=== PATIENT | female | born 1975 | race Two or more races ===

== ENCOUNTER 2016-10-06 08:17 | Emergency (ER) | payer MEDICAID ==
[2016-10-06 08:24] VITALS: BP 133/95
--- NOTE | 2016-10-06 08:45 | ER Document Report ---
HPI - HPI Patient complains to provider of: cockroach in left ear canal Onset: This morning Onset/Duration: Sudden Pain Level: 5 Context: 40 yo female with cockroach in left ear canal this am, put alcohol in it and doesn't feel it move anymore. Associated Symptoms: None Exacerbated by: Denies Relieved by: Denies Similar symptoms previously: Yes Recently seen / treated by doctor: No - ROS ROS below otherwise negative: Yes Systems Reviewed and Negative: Yes All other systems reviewed and negative - DERM Skin Color: Normal Past Medical History - General Information source: Patient - Social History Smoking Status: Unknown if Ever Smoked Frequency of alcohol use: None Drug Abuse: None Lives with: Family - in [facility], visiting mom in [place] Family History: Reviewed & Not Pertinent - Medical History Medical History: Negative Renal/ Medical History: Denies: Hx Peritoneal Dialysis Surgical Hx: Negative Vertical Provider Document - CONSTITUTIONAL Agree With Documented VS: Yes Exam Limitations: No Limitations - INFECTION CONTROL TRAVEL OUTSIDE OF THE [place] IN LAST 30 DAYS: No - HEENT HEENT: Normocephalic Notes: bug in left ear canal - NECK Neck: Supple - RESPIRATORY Respiratory: Breath Sounds Normal, No Respiratory Distress O2 Sat by Pulse Oximetry: 99 - CARDIOVASCULAR Cardiovascular: Regular Rate, Regular Rhythm - MUSCULOSKELETAL/EXTREMETIES Musculoskeletal/Extremeties: DEANNA COLE - NEURO Level of Consciousness: Awake, Alert, Appropriate - DERM Integumentary: Warm, Dry Course - Re-evaluation Re-evalutation: 10/06/16 08:48 Unable to get the bug out with 2 instruments. In the course of using suction, suspect inferior TM is bleeding, possible traumatic TM rupture, versus canal abrasion., bug still in canal. [facility] is closed. Will try [facility]. Pt able to hear in the left ear, some blood in base of canal. 10/06/16 09:19 dr. rivera at [facility] in [place] will see the pt to send to the office at this time. [address] [facility]. [phone]. 10/06/16 18:49 update on the pt from dr. rivera, bug out, TM intact, abrasion to the canal only. - Vital Signs Vital signs: Temp Pulse Resp BP Pulse Ox 97.7 F 94 16 133/95 H 99 10/06/16 08:23 10/06/16 08:23 10/06/16 08:23 10/06/16 08:23 10/06/16 08:23 Discharge - Discharge Clinical Impression: bug stuck in left ear, possible TM inferior rupture Condition: Good Disposition: HOME, SELF-CARE Instructions: Foreign Object in the Ear, Not Removed ([facility]), Perforated Eardrum ([facility]) Additional Instructions: go directly to [facility] at [address] [facility] [id number] [address] rivera will see you to get the but out [phone]
[2016-10-06] MEDS ORDERED: ACETAMINOPHEN 325 MG TABLET PO ONE (09:24)
== END 2016-10-06 09:36 | disposition home or self-care (01) ==
LOC: ER 08:17
DX: T16.2XXA Foreign body in left ear, initial encounter (principal); X58.XXXA Exposure to other specified factors, initial encounter
CPT/HCPCS: 99282